=== PATIENT | female | born 1980 | race Caucasian/White ===

== ENCOUNTER → 2017-11-04 | Outpatient (CLI) | payer OTHER ==
[~2017-11-04] MED LIST: PRENTAB26 PO
--- NOTE | 2017-11-04 19:36 | DIAGNOSTIC IMAGING REPORT ---
MRI OF THE BRAIN WITHOUT CONTRAST CLINICAL HISTORY: Cognitive changes. Changes in word recall and language. COMPARISON STUDY: None. TECHNIQUE: Utilizing a 1.5 Sudha magnet and dedicated coil, multiplanar, multiecho imaging of the brain was performed without IV contrast. FINDINGS: There are no foci of restricted diffusion. No acute intracranial hemorrhage, midline shift or mass effect is present. Brain volume is normal. Ventricular system is normal. The basilar cisterns are patent. There are no extra-axial collections. No intracranial masses are identified on this unenhanced exam. No foci of signal abnormality are present. Calvarial signal is unremarkable. Orbits, sinuses and mastoid air cells are unremarkable. IMPRESSION: Normal unenhanced MRI of the brain. Electronically signed by: Morteza Lopez M.D. 11/04/2017 7:34 PM Dictated Date/Time: 11/04/2017 7:31 PM
== END | disposition home or self-care (01) ==
LOC: C.MRI 18:54
PROVIDERS: ATTEND Psychiatry & Neurology Neurology
DX: R41.89 Other symptoms and signs involving cognitive functions and awareness (principal)